=== PATIENT | male | born 1985 | race American Indian/Alaskan Native ===

== ENCOUNTER → 2024-02-16 13:33 | Outpatient (BNVA) | payer OTHER, SELFPAY | PROVIDERS: PCP Family Medicine; Visit Provider Student in an Organized Health Care Education/Training Program | DX: S73.191A Other sprain of right hip, initial encounter (principal); W01.0XXA Fall on same level from slipping, tripping and stumbling without subsequent striking against object, initial encounter | CPT/HCPCS: 73502; 99204 ==

== ENCOUNTER 2025-01-22 07:45 | Outpatient (CLI) | payer OTHER, SELFPAY ==
--- NOTE | 2025-01-22 07:50 | MR_ITS ---
WS: [id number] MRI HEAD WITH CONTRAST TECHNIQUE: Sagittal T1, T2 axial, T2 axial FLAIR, axial susceptibility weighted imaging, axial diffusion weighted images, and coronal T2 images were obtained. Pre and post-T1 axial and post T1 coronal images. ADC and FSPGR images. CLINICAL INFORMATION: MEMORY ISSUE DIFFICULTY W/LANGUAGE COMPARISON: None. FINDINGS: No evidence of restricted diffusion to suggest acute ischemia. No suspicious intracranial signal abnormalities. Normal posterior fossa. Normal vascular flow voids at the skull base. No extra-axial fluid collections. Paranasal sinuses are well aerated. Mild mucosal thickening in the RIGHT greater than LEFT mastoid air cells. Normal posterior nasopharynx. No hemosiderin on the susceptibility weighted images. No abnormal gadolinium enhancement. Normal dural venous sinuses. MR/MR head wo/w con [id number] IMPRESSION: 1. No evidence of restricted diffusion to suggest acute ischemia 2. No suspicious intracranial signal abnormalities. 3. No hemosiderin on susceptibility-weighted images. 4. No abnormal gadolinium enhancement. 5. Partial opacification of the RIGHT greater than LEFT mastoid air cells. 6. Temporal lobes and hippocampal formations are normal in appearance.
[2025-01-22] MEDS: gadobenate dimeglumine 20 mL vial IV (08:57)
== END 2025-01-22 07:46 | disposition home or self-care (01) ==
PROVIDERS: PCP Family Medicine; Visit Provider Family Medicine
DX: Z01.89 Encounter for other specified special examinations (principal); H74.8X3 Other specified disorders of middle ear and mastoid, bilateral
CPT/HCPCS: 70553